=== PATIENT | male | born 1985 | race Two or more races ===

== ENCOUNTER 2016-08-11 21:34 | Emergency (ER) | payer OTHER ==
[2016-08-11 21:46] VITALS: BP 119/87; PULSE 71; RESP 16; TEMP 98.2; O2SAT 97
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
[2016-08-11] MEDS ORDERED: HYDROCOD/APAP 5/325 PREPACK#6 BTL TAKEHOME ONE (22:12)
== END 2016-08-11 22:27 | disposition home or self-care (01) ==
DX: T25.221A Burn of second degree of right foot, initial encounter (principal); X11.8XXA Contact with other hot tap-water, initial encounter; Y92.69 Other specified industrial and construction area as the place of occurrence of the external cause; Y99.0 Civilian activity done for income or pay
CPT/HCPCS: L4386

== ENCOUNTER 2016-08-18 18:30 | Observation (INO) | payer OTHER ==
[2016-08-18] MEDS ORDERED: TDAP ADULT 0.5 ML INJ (BOOSTRIX) IM ONE (19:00)
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
[2016-08-18] MEDS ORDERED: LET GEL TOPICAL 1 EA SYR TP ONE (19:13)
[2016-08-18 19:39] LABS: % IMMATURE GRANULYOCYTES 0.4 % (0.0-1.1); ABSOLUTE IMMATURE GRANULOCYTES 0.04 10^3/uL (0.00-0.10); ADD DIFF? NO; ADD MORPH? NO; ADD SCAN? NO; ATYPICAL LYMPHOCYTE FLAG 30 (0-99); FRAGMENT RBC FLAG 0 (0-99); HEMATOCRIT 41.8 % (40.0-51.0); HEMOGLOBIN 14.5 g/dL (13.7-17.5); LEFT SHIFT FLG 0 (0-99); LIPEMIA HEMOLYSIS FLAG 90 (0-99); MEAN CELL HEMOGLOBIN 30.4 pg (27.9-34.1); MEAN CELL HEMOGLOBIN CONCENTR. 34.7 g/dL (32.4-36.7); MEAN CELL VOLUME 87.6 fL (81.5-99.8); PLATELET CLUMPS FLAG 0 (0-99); PLATELET COUNT 345 10^3/uL (150-400); RED BLOOD CELL COUNT 4.77 10^6/uL (4.40-6.38); RED CELL DISTRIBUTION WIDTH 12.3 % (11.5-15.2)
[2016-08-18 20:01] LABS: ANION GAP 16 mEq/L (8-16); CALCIUM 10.3 mg/dL (8.5-10.4); CARBON DIOXIDE 21 mEq/l (22-31); CHLORIDE 105 mEq/L (97-110); CREATININE 0.9 mg/dL (0.7-1.3); GLOMERULAR FILTRATION RATE > 60; GLUCOSE 82 mg/dL (70-100); SODIUM 142 mEq/L (134-144)
[2016-08-18] MEDS ORDERED: ONDANSETRON 4 MG/2 ML VIAL IVP PRN (20:44)
[2016-08-18] MEDS ORDERED: IBUPROFEN 200 MG TAB PO PRN (20:44)
[2016-08-18] MEDS ORDERED: ONDANSETRON DISINTEGRATING 4 MG TAB PO PRN (20:44)
[2016-08-18] MEDS ORDERED: ACETAMINOPHEN 325 MG TAB PO PRN (20:44)
[2016-08-18] MEDS ORDERED: NS 1,000 ML IV SCH (20:45)
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
[2016-08-18] MEDS: ACETAMINOPHEN 500 MG TAB PO SCH (22:05)
[2016-08-19] MEDS: ACETAMINOPHEN 500 MG TAB PO SCH ×2 (05:16→14:00)
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
[2016-08-19 11:55] VITALS: BP 131/77; PULSE 77; RESP 18; TEMP 97.6; O2SAT 98
--- NOTE | 2016-08-19 13:07 | WOCRNPDOC ---
WOCRN Advanced Assessment Note - Skin Integrity Problem, Advanced Assess Right Ankle Dressing Type: Marika, Vaseline Gauze Dressing Dressing Description: Clean/Dry, Intact Exudate Amount: Scant Exudate Characteristic(s): Serosanguinous Integumentary Issue Intervention: Dressing Changed Bing Wound Tissue: Macerated (extreme maceration of skin along inferior wound margin) Wound Bed Color: Red, White Wound Bed Constitution: Granulation Tissue (65%), Adhered Slough (35%) Wound Edges: Not Attached Site Measurement - Head-to-Toe Length X Width X Depth (cm): 4.1x11.2x0.1, slough : 2.8x2.7xslough Skin Integrity Problem Comment: Wound cleaned gently with ns and gauze. [employer] burn rosalind communicated with Dr. Romero at [facility] Burn unit who recommended patient be transferred to their burn unit for IV antibiotics, debridement and skin grafting. This was communicated to Rachael Martinez NP in charge of patient today. Silvasorb was applied to wound bed, then covered with adaptic touch and mepilex 4x4. This was secured with marika.
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
== END 2016-08-19 14:23 | disposition short-term general hospital (02) ==
LOC: F3E 21:50
PROVIDERS: ADMIT Internal Medicine; ATTEND Internal Medicine
DX: L03.115 Cellulitis of right lower limb (principal); T25.221A Burn of second degree of right foot, initial encounter; E87.2 Acidosis; T31.0 Burns involving less than 10% of body surface; X15.3XXA Contact with hot saucepan or skillet, initial encounter; Y99.0 Civilian activity done for income or pay; Y93.G3 Activity, cooking and baking; Y92.511 Restaurant or cafe as the place of occurrence of the external cause; Z23 Encounter for immunization
CPT/HCPCS: G0378 ×2; J0690